=== PATIENT | male | born 1965 | race Hispanic/Latino ===

== ENCOUNTER 2021-07-27 11:11 | Emergency (ER) | payer BC ==
[~2021-07-27] VITALS: Ht 177.8 cm; Wt 104.3 kg
[2021-07-27 11:51] LABS: BASOPHILS % (AUTO) 0.1 % (0.0-5.0); EOSINOPHILS % (AUTO) 0.2 % (0.0-8.0); HEMATOCRIT 53.2 % (42-54); LYMPHOCYTES % (AUTO) 3.8 % (21.0-51.0); MEAN CORPUSCULAR HGB CONC 32.1 g/dL (32.0-36.0); MEAN CORPUSCULAR VOLUME 96.6 fL (79-99); MONOCYTES % (AUTO) 4.1 % (3.0-13.0); NEUTROPHILS % (AUTO) 91.3 % (40.0-77.0); PLATELET COUNT (AUTO) 228 K/uL (130-400); RED BLOOD CELL COUNT(AUTO) 5.51 MIL/uL (4.50-6.20); RED CELL DISTRIBUTION WIDTH 13.6 % (11.0-15.5); WHITE BLOOD COUNT (AUTO) 15.4 K/uL (4.8-10.8)
[2021-07-27 12:01] LABS: CREATININE 1.5 mg/dL (0.5-1.5); POTASSIUM 4.3 mmol/L (3.5-5.1)
[2021-07-27 12:05] LABS: ALBUMIN 3.9 g/dL (3.5-5.0); BILIRUBIN,TOTAL 0.7 mg/dL (0.2-1.0); TOTAL PROTEIN, SERUM 8.1 g/dL (6.0-8.3)
[2021-07-27 12:43] LABS: APPEARANCE,URINE Cloudy (CLEAR); BILIRUBIN,URINE Moderate (NEGATIVE); COLOR,URINE Dark Yellow (YELLOW); GLUCOSE, URINE (UA) TRACE mg/dL (NEGATIVE); KETONES,URINE 15 mg/dL (NEGATIVE); LEUKOCYTE ESTERASE ,URINE Trace (NEGATIVE); NITRATE,URINE Negative (NEGATIVE); OCCULT BLOOD,URINE Negative (NEGATIVE); PROTEIN,URINE POS 2+ mg/dL (NEGATIVE)
[2021-07-27 12:47] LABS: BACTERIA,URINE Few /HPF (None Seen); RBC,URINE 0-1 /HPF (0-1)
[2021-07-27 12:48] LABS: MUCUS,URINE Many LPF (None Seen); SQUAMOUS EPITHELIAL CELL,UR Rare /HPF (0-2)
[2021-07-27] MEDS ORDERED: 0.9%NACL 1000ML 1,000 ML IV SCH ×2 (13:00→14:00)
[2021-07-27] MEDS ORDERED: FAMOTIDINE 20MG VIAL IV SCH (13:00)
[2021-07-27] MEDS ORDERED: MORPHINE 4 MG SYG IVP SCH (13:00)
[2021-07-27] MEDS ORDERED: ONDANSETRON 4MG INJ IVP SCH (13:00)
[2021-07-27] MEDS ORDERED: DIPHENOXYLATE HCL/ATROPINE 2.5/0.025 MG TAB PO SCH (13:00)
[2021-07-27] MEDS ORDERED: ONDANSETRON 4MG INJ ONE (13:08)
[2021-07-27] MEDS ORDERED: FAMOTIDINE 20MG VIAL IV ONE (13:09)
[2021-07-27] MEDS ORDERED: 0.9%NACL 1000ML 1,000 ML IV ONE (13:09)
[2021-07-27] MEDS ORDERED: MORPHINE 4 MG SYG ONE (13:09)
[2021-07-27] MEDS ORDERED: DIPHENOXYLATE HCL/ATROPINE 2.5/0.025 MG TAB PO ONE ×2 (13:09→13:21)
[2021-07-27] MEDS ORDERED: ONDA4TAB10 PO (15:42)
[2021-07-27] MEDS ORDERED: FAMO-136 PO (15:42)
[2021-07-27] MEDS ORDERED: L.AC1CAP6 PO (15:42)
[2021-07-27] MEDS ORDERED: DICY20TA2 PO (15:42)
[2021-07-27] MEDS ORDERED: DIPH1TAB PO (15:42)
[2021-07-27] MEDS ORDERED: ACETAMINOPHEN 500 MG TABLET ONE (16:38)
[2021-07-27 16:44] VITALS: BP 130/74
== END 2021-07-27 16:40 | disposition home or self-care (01) ==
LOC: EDH 11:11
DX: K52.9 Noninfective gastroenteritis and colitis, unspecified (principal); Z88.0 Allergy status to penicillin; Z79.899 Other long term (current) drug therapy
CPT/HCPCS: 36415; 74176; 80053; 81001; 83605; 83690; 85025; 87040 ×2; 87804 ×2; 96361; 96374; 96375; 99284; J2270; J2405; J3490; J7030